=== PATIENT | female | born 1955 | race Caucasian/White ===

== ENCOUNTER 2016-11-18 08:02 | Emergency (ER) | payer OTHER ==
--- NOTE | 2016-11-18 09:51 | ERRECORD ---
[facility] EMERGENCY RECORD HPI SHOULDER (:17 WMEI) CHIEF COMPLAINT: Patient presents for evaluation of injury, to the right shoulder, Patient presents for evaluation of pain, to the right shoulder. HISTORIAN: History provided by patient, tripped 2 days ago fell on r shoulder pain since. MECHANISM OF INJURY: Known mechanism, Mechanism of injury fall, from standing, landing on right arm. QUALITY: Pain is dull in nature. TIME COURSE: Sudden onset of symptoms, 2, days ago. ASSOCIATED WITH: No associated distal injury, No associated elbow pain. EXACERBATED BY: Patient's condition exacerbated by extension, Patient's condition exacerbated by flexion, Patient's condition exacerbated by movement. RELIEVED BY: Patient's condition relieved by rest. ROS (09:18 WMEI) CONSTITUTIONAL: Negative constitutional review of systems, Historian denies fever, denies malaise. EYES: Historian denies eye pain, denies eye discharge. ENT: Historian denies rhinorrhea, denies sore throat. CARDIOVASCULAR: Historian denies chest pain, no radiation. RESPIRATORY: Historian denies cough, denies shortness of breath. GI: Historian denies abdominal pain, denies nausea. MUSCULOSKELETAL: Historian reports fall, reports injury, reports joint stiffness. see hpi. SKIN: Historian denies rash, denies skin changes, reports skin lesions. abrasions over crown of shoulder. NEUROLOGIC: Historian denies focal weakness, denies mental status changes. HEMO/LYMPHATIC: Historian denies easy bruising. PSYCHIATRIC: Historian denies anxiety, denies depression, denies emotional lability. PAST MEDICAL HISTORY (08:10 CTUR) MEDICAL HISTORY: Past medical history includes history of hyperlipidemia, Past medical history includes history of hypertension, Past medical history includes cardiac history, carotid plaque, Past medical history includes musculoskeletal disorder, chronic back pain, Past medical history includes history of diabetes. COMPRESSED FRACTURES OF THE VERTEBRA. verified 11/18/16. FEMALE SURGICAL HISTORY: left carotid sx, Surgical history of orthopedic surgery, right kvng, Notes: replacement, Surgical history of tubal ligation. right foot with all toes amputated; left foot with first and third toe amputated. verified 11/18/16. PSYCHIATRIC HISTORY: No previous psychiatric history,. verified 11/18/16. SOCIAL HISTORY: Patient denies alcohol use, Patient denies drug use, Patient has no smoking history, Patient drinks socially, &a-1R&a+25V*p+0X*y1902U*c202B*c15G*c2P*p-0X&a-25V&a+1R Name: Tanya Lou : 1955 F61 MedRec: [id number] AcctNum: [id number] Prepared: Noy Nov 18, 2016 13:21 by Interface Page 1 of 4 pMD [facility] EMERGENCY RECORD twice a month, Patient denies drug use, Patient has no smoking history, Lives at home,. verified 11/18/16. KNOWN ALLERGIES chicken derived (Unconfirmed): Reaction: Anaphylaxis diphenhydramine HCl (Unconfirmed): Reaction: Swollen Lips DUCKS (Unconfirmed): Reaction: Short of Breath honeydew (Unconfirmed): Reaction: Anaphylaxis kiwi (Unconfirmed): Reaction: Anaphylaxis LENTILS (Unconfirmed) No Known Drug Allergies piperacillin sodium (Unconfirmed): Reaction: ITCHING shellfish derived (Unconfirmed) STRAWBERRIES (Unconfirmed) tazobactam sodium (Unconfirmed) watermelon (Unconfirmed): Reaction: Anaphylaxis CURRENT MEDICATIONS (08:11 CTUR) metFORMIN: TABLET : Strength - 1,000 mg : ORAL Patient Dose: 1 tab(s) Oral 2 times a day. NovoLIN 70/30: VIAL (ML) : Strength - 100 unit/mL (70-30) : SUBCUTANEOUS Patient Dose: units Subcutaneous See Notes.60 UNITS IN AM; 40 UNITS IN PM. lisinopril: TABLET : Strength - 5 mg : ORAL Patient Dose: 1 tab(s) Oral once a day. atorvastatin: TABLET : Strength - 40 mg : ORAL Patient Dose: 1 tab(s) Oral once a day (at bedtime). Aspirin For Children: TABLET, CHEWABLE : Strength - 81 mg : ORAL Patient Dose: 1 tab(s) Oral once a day. VITAL SIGNS VITAL SIGNS: BP: 162/67, Pulse: 81, Resp: 18, Temp: 97.7 (Oral), Pain: 8, O2 sat: 99 on Room Air, Time: 11/18/2016 08:08. (08:08 CTUR) BP: 148/62, Pulse: 75, Resp: 18 (Non-Labored), Temp: 98.1 (Oral), O2 sat: 99 on Room Air, Time: 11/18/2016 09:28. (09:28 LGIB) PHYSICAL EXAM (09:21 WMEI) CONSTITUTIONAL: Vital Signs Reviewed, Patient afebrile, Patient alert and oriented to person, place and time. HEAD: Head exam included findings of head atraumatic, normocephalic. EYES: Conjunctiva normal, Sclera normal. ENT: Nose exam normal, Pharynx exam normal. NECK: Neck exam included findings of normal range of motion, Trachea midline, no cervical adenopathy. &a-1R&a+25V*p+0X*s7442R*c202B*c15G*c2P*p-0X&a-25V&a+1R Name: Tanya Lou : 1955 F61 MedRec: [id number] AcctNum: [id number] Prepared: Noy Nov 18, 2016 13:21 by Interface Page 2 of 4 pMD [facility] EMERGENCY RECORD RESPIRATORY CHEST: Breath sounds clear, Chest exam included findings of chest movement symmetrical. CARDIOVASCULAR: Cardiovascular exam included findings of heart rate regular rate and rhythm, Heart sounds normal. ABDOMEN FEMALE: Abdominal exam included findings of abdomen nontender, Spleen normal. BACK: Tenderness, paraspinal to the right upper back, no costovertebral angle tenderness. UPPER EXTREMITY: Left shoulder exam normal, Right shoulder exam included findings of, abrasions, tenderness, active range of motion abnormal, passive range of motion abnormal, capillary refill less than 2 seconds, distal motor intact, distal sensory intact. LOWER EXTREMITY: Range of motion normal, Motor strength normal. NEURO: Isa coma scale 15, Neuro exam findings include patient oriented to person, place and time, Speech normal, Gait normal. SKIN: Skin exam included findings of skin warm, dry, and normal in color, abrasions over r shoulder. LYMPHATIC: Lymphatic exam normal. PSYCHIATRIC: Psychiatric exam included findings of patient oriented to person place and time, Normal affect, Judgment normal, Insight normal. EKG INTERPRETATION (08:33 DHAM) 12 LEAD EKG INTERPRETATION: 12 lead EKG interpreted by Emergency Department Physician at time of study, 12 lead EKG shows normal sinus rhythm, Rate (beats per minute): 79, with no ectopics, No previous EKG available for comparison, Conduction normal, ST segments normal, T waves normal, Gila normal, Other findings include:, Q waves in V1, Q waves in V2, cannot rule out prior septal infarct. RADIOLOGYINTERPRETATION (09:24 WMEI) BRUSHER WARP: Preliminary review of x-rays by, ED Physician, no fx or dislocation. DOCTOR NOTES (09:00 WMEI) SIGN OUT: Patient signed out to, Dr. Hughes, Pending radiology studies include right shoulder. PROBLEM LIST No recorded problems DIAGNOSIS (09:25 WMEI) FINAL: PRIMARY: Shoulder sprain. PRESCRIPTION No recorded prescriptions DISPOSITION &a-1R&a+25V*p+0X*[id number]*c202B*c15G*c2P*p-0X&a-25V&a+1R Name: Tanya Lou : 1955 F61 MedRec: [id number] AcctNum: [id number] Prepared: Noy Nov 18, 2016 13:21 by Interface Page 3 of 4 pMD [facility] EMERGENCY RECORD PATIENT: Disposition Type: Discharge, Disposition: *Discharge Home. (09:25 WMEI) Patient left the department. (09:38 LGIB) Dailey: CTUR=FAB Arzola, Nayla MCGARRY=MD Sandy, Vikram LGIB=FAB Ferreira, Mindy WMEI=DO Hughes William &a-1R&a+25V*p+0X*a4005H*c202B*c15G*c2P*p-0X&a-25V&a+1R Name: Tanya Lou : 1955 F61 MedRec: [id number] AcctNum: [id number] Prepared: Noy Nov 18, 2016 13:21 by Interface Page 4 of 4 pMD MTDD
--- NOTE | 2016-11-18 09:53 | PICIS ---
[facility] EMERGENCY RECORD TRIAGE (08:07 CTUR) TRIAGE NOTES: Patient reports she had a fall on Saturday and has increased right shoulder pain since. (08:07 CTUR) PATIENT: NAME: Tanya Lou, AGE: 61, GENDER: female, : Sat1955, TIME OF GREET: Sun Nov 18, 2016 08:03, PREFERRED LANGUAGE: Romansh, ETHNICITY: Not or , ECODE BILLING MAP: [facility], SSN: [id number], Zip Code: [address], KG WEIGHT: 81.65 (est.), PHONE: , , , PERSON ID: [id number], PAYMENT: X Medicaid, PCP: MD Chambers Warren. (08:07 CTUR) COMPLAINT: Right Shoulder Pain. (08:07 CTUR) ADMISSION: URGENCY: 4 Non Urgent, ADMISSION SOURCE: Home, TRANSPORT: CAR, BED: TRIAGE. (08:07 CTUR) IMMUNIZATIONS: Flu vaccine not up to date, Tetanus not up to date, Pneumococcal vaccine not up to date. (08:10 CTUR) SIRS SCORING: Heart Rate 55-109 (0), Temp range 96.8-101.1 (0), respiratory rate 12-24 (0), Mental Status altered: no (0). (08:10 CTUR) TRIAGE SCREENING: Patient denies suicidal ideation, Patient denies presence of domestic violence. (08:10 CTUR) LMP: LMP: Menopause. (08:10 CTUR) PROVIDERS: TRIAGE NURSE: Nayla Arzola RN. (08:07 CTUR) VITAL SIGNS: BP 162/67, Pulse 81, Resp 18, Temp 97.7, (Oral), Pain 8, O2 Sat 99, on Room Air, Time 11/18/2016 08:08. (08:08 CTUR) PREVIOUS VISIT ALLERGIES: No Known Drug Allergies. (08:07 CTUR) No Known Drug Allergies. (08:10 CTUR) KNOWN ALLERGIES chicken derived (Unconfirmed): Reaction: Anaphylaxis diphenhydramine HCl (Unconfirmed): Reaction: Swollen Lips DUCKS (Unconfirmed): Reaction: Short of Breath honeydew (Unconfirmed): Reaction: Anaphylaxis kiwi (Unconfirmed): Reaction: Anaphylaxis LENTILS (Unconfirmed) No Known Drug Allergies piperacillin sodium (Unconfirmed): Reaction: ITCHING shellfish derived (Unconfirmed) STRAWBERRIES (Unconfirmed) tazobactam sodium (Unconfirmed) watermelon (Unconfirmed): Reaction: Anaphylaxis CURRENT MEDICATIONS (08:11 CTUR) metFORMIN: TABLET : Strength - 1,000 mg : ORAL Patient Dose: 1 tab(s) Oral 2 times a day. NovoLIN 70/30: VIAL (ML) : Strength - 100 unit/mL (70-30) : SUBCUTANEOUS Patient Dose: units Subcutaneous See Notes.60 UNITS IN AM; 40 UNITS IN PM. &a-1R&a+25V*p+0X*h0017A*c202B*c15G*c2P*p-0X&a-25V&a+1R Name: Tanya Lou : 1955 F61 MedRec: [id number] AcctNum: [id number] Prepared: Noy Nov 18, 2016 13:27 by Interface Page 1 of 6 pMD [facility] EMERGENCY RECORD lisinopril: TABLET : Strength - 5 mg : ORAL Patient Dose: 1 tab(s) Oral once a day. atorvastatin: TABLET : Strength - 40 mg : ORAL Patient Dose: 1 tab(s) Oral once a day (at bedtime). Aspirin For Children: TABLET, CHEWABLE : Strength - 81 mg : ORAL Patient Dose: 1 tab(s) Oral once a day. VITAL SIGNS VITAL SIGNS: BP: 162/67, Pulse: 81, Resp: 18, Temp: 97.7 (Oral), Pain: 8, O2 sat: 99 on Room Air, Time: 11/18/2016 08:08. (08:08 CTUR) BP: 148/62, Pulse: 75, Resp: 18 (Non-Labored), Temp: 98.1 (Oral), O2 sat: 99 on Room Air, Time: 11/18/2016 09:28. (09:28 LGIB) NURSING ASSESSMENT: EXTREMITY UPPER (08:11 CTUR) CONSTITUTIONAL: Complex assessment performed, Patient arrives ambulatory, Gait steady, History obtained from patient, Patient appears comfortable, Patient cooperative, Patient alert, Oriented to person, place and time, Skin warm, Skin dry, Skin normal in color, Mucous membranes pink, Mucous membranes moist, Patient complains of Right shoulder pain, Patient reports she tripped while walking on Saturday and fell onto her right shoulder, pt reports increase in pain with no relief from pain with medications. PAIN: aching pain, right shoulder, on a scale 0-10 patient rates pain as 8, Nothing has been tried to alleviate the pain. NONVERBAL PAIN: Non-Verbal pain assessment findings include: No non-verbal complaints while at rest (0), Non-Verbal complaints present with movement (1), Facial Grimaces not present at rest (0), Facial grimaces present with movement (1), Bracing not present at rest (0), Bracing not present with movement (0), Restlessness not present at rest (0), Restlessness not present with movement (0), Rubbing not present at rest (0), Rubbing not present with movement (0), Result: 2. LEFT UPPER EXTREMITY: Left upper extremity assessment findings include capillary refill less than 2 seconds, Skin color normal to hand, Skin temperature to hand warm, Distal sensation intact, Muscle tone normal, muscle strength 5, no edema present, radial pulse is +3, Inspection findings include no abrasions, Inspection findings include no swelling. RIGHT UPPER EXTREMITY: Right upper extremity assessment findings include capillary refill less than 2 seconds, Skin color normal to hand, Skin temperature to hand warm, Distal sensation intact, Muscle tone normal, muscle strength 1, no edema present, radial pulse is +3, Inspection findings include no abrasions, Inspection findings include no swelling, Notes: pt reports mild numb/tingling sensation to top of right shoudler. SAFETY: Side rails up, Cart/Stretcher in lowest position, Call &a-1R&a+25V*p+0X*w2223F*c202B*c15G*c2P*p-0X&a-25V&a+1R Name: Tanya Lou : 1955 F61 MedRec: [id number] AcctNum: [id number] Prepared: Noy Nov 18, 2016 13:27 by Interface Page 2 of 6 pMD [facility] EMERGENCY RECORD light within reach, Hospital ID band on. NURSING PROCEDURE: DISCHARGE NOTE (09:37 LGIB) DISCHARGE: Patient discharged to home, ambulating without assistance, driving self, unaccompanied, Summary of Care printed/ provided, Patient requested and was provided an electronic copy of Discharge Instructions, Discharge instructions given to patient, Simple or moderate discharge teaching performed, Above person(s) verbalized understanding of discharge instructions and follow-up care, Patient treated and evaluated by physician. BELONGINGS: Belongings and valuables with patient at time of discharge include:, Belongings remain with patient, Valuables remain with patient. NURSING PROCEDURE: EKG CHART (08:17 LGIB) EK lead EKG performed on the left chest, done by FAB Kim. FOLLOW-UP: After procedure, EKG for interpretation given to Dr. LUCAS. SAFETY: Side rails up, Cart/Stretcher in lowest position, Call light within reach, Hospital ID band on. NURSING PROCEDURE: NURSE NOTES (08:23 CTUR) NURSES NOTES: Notes: Upon helping patient into the hospital gown noted multiple lesions to bilateral breasts, pt reports she had chicken grease splash her breasts while cooking. All lesions are scabbed with no active bleeding. NURSING PROCEDURE: TRANSPORT TO TESTS PATIENT IDENTIFIER: Patient actively involved in identification process, Patient's identity verified by patient stating name, Patient's identity verified by patient stating date, Patient's identity verified by hospital ID bracelet. (08:28 CTUR) TRANSPORT TO TESTS: Transport indicated to facilitate diagnosis, Patient transported to x-ray, via wheelchair, Accompanied by x-ray residential pest control technician. (08:28 CTUR) FOLLOW-UP: After procedure, patient returned to emergency department. (08:48 LGIB) SAFETY: Side rails up, Cart/Stretcher in lowest position, Call light within reach, Hospital ID band on. (08:28 CTUR) ORDER DETAILS Order Name: EKG 12 Lead in Emergency Room, Status: Active, Time: 08:23 11/18/2016, User: CTUR, - Ordered for: MD Sandy, Vikram, - Entered by: FAB Arzola Christin - Sun Nov 18, 2016 08:23, - Quantity: 1, Order Name: Miscellaneous Nurse Order(s), Status: Done, Time: 09:28 11/18/2016, User: LGIB, - Ordered for: DO Hughes William, &a-1R&a+25V*p+0X*l8584D*c202B*c15G*c2P*p-0X&a-25V&a+1R Name: Tanya Lou : 1955 F61 MedRec: [id number] AcctNum: [id number] Prepared: Noy Nov 18, 2016 13:27 by Interface Page 3 of 6 pMD [facility] EMERGENCY RECORD - Entered by: DO Hughes William - Noy Nov 18, 2016 09:24, - Quantity: 1, Order Name: XR Shoulder Rt 3 View STANDARD, Status: Active, Time: 08:23 11/18/2016, User: ZEFERINO, - Ordered for: MD Lucas Darren, - Entered by: MD Lucas Darren - Noy Nov 18, 2016 08:23, - Quantity: 1. HPI SHOULDER (09:17 WMEI) CHIEF COMPLAINT: Patient presents for evaluation of injury, to the right shoulder, Patient presents for evaluation of pain, to the right shoulder. HISTORIAN: History provided by patient, tripped 2 days ago fell on r shoulder pain since. MECHANISM OF INJURY: Known mechanism, Mechanism of injury fall, from standing, landing on right arm. QUALITY: Pain is dull in nature. TIME COURSE: Sudden onset of symptoms, 2, days ago. ASSOCIATED WITH: No associated distal injury, No associated elbow pain. EXACERBATED BY: Patient's condition exacerbated by extension, Patient's condition exacerbated by flexion, Patient's condition exacerbated by movement. RELIEVED BY: Patient's condition relieved by rest. ROS (09:18 WMEI) CONSTITUTIONAL: Negative constitutional review of systems, Historian denies fever, denies malaise. EYES: Historian denies eye pain, denies eye discharge. ENT: Historian denies rhinorrhea, denies sore throat. CARDIOVASCULAR: Historian denies chest pain, no radiation. RESPIRATORY: Historian denies cough, denies shortness of breath. GI: Historian denies abdominal pain, denies nausea. MUSCULOSKELETAL: Historian reports fall, reports injury, reports joint stiffness. see hpi. SKIN: Historian denies rash, denies skin changes, reports skin lesions. abrasions over crown of shoulder. NEUROLOGIC: Historian denies focal weakness, denies mental status changes. HEMO/LYMPHATIC: Historian denies easy bruising. PSYCHIATRIC: Historian denies anxiety, denies depression, denies emotional lability. PAST MEDICAL HISTORY (08:10 CTUR) MEDICAL HISTORY: Past medical history includes history of hyperlipidemia, Past medical history includes history of hypertension, Past medical history includes cardiac history, carotid plaque, Past medical history includes musculoskeletal disorder, chronic back pain, Past medical history includes history of diabetes. COMPRESSED FRACTURES OF THE VERTEBRA. verified 11/18/16. &a-1R&a+25V*p+0X*g5293S*c202B*c15G*c2P*p-0X&a-25V&a+1R Name: Tanya Lou : 1955 F61 MedRec: [id number] AcctNum: [id number] Prepared: Noy Nov 18, 2016 13:27 by Interface Page 4 of 6 pMD [facility] EMERGENCY RECORD FEMALE SURGICAL HISTORY: left carotid sx, Surgical history of orthopedic surgery, right kvng, Notes: replacement, Surgical history of tubal ligation. right foot with all toes amputated; left foot with first and third toe amputated. verified 11/18/16. PSYCHIATRIC HISTORY: No previous psychiatric history,. verified 11/18/16. SOCIAL HISTORY: Patient denies alcohol use, Patient denies drug use, Patient has no smoking history, Patient drinks socially, twice a month, Patient denies drug use, Patient has no smoking history, Lives at home,. verified 11/18/16. PHYSICAL EXAM (09:21 WMEI) CONSTITUTIONAL: Vital Signs Reviewed, Patient afebrile, Patient alert and oriented to person, place and time. HEAD: Head exam included findings of head atraumatic, normocephalic. EYES: Conjunctiva normal, Sclera normal. ENT: Nose exam normal, Pharynx exam normal. NECK: Neck exam included findings of normal range of motion, Trachea midline, no cervical adenopathy. RESPIRATORY CHEST: Breath sounds clear, Chest exam included findings of chest movement symmetrical. CARDIOVASCULAR: Cardiovascular exam included findings of heart rate regular rate and rhythm, Heart sounds normal. ABDOMEN FEMALE: Abdominal exam included findings of abdomen nontender, Spleen normal. BACK: Tenderness, paraspinal to the right upper back, no costovertebral angle tenderness. UPPER EXTREMITY: Left shoulder exam normal, Right shoulder exam included findings of, abrasions, tenderness, active range of motion abnormal, passive range of motion abnormal, capillary refill less than 2 seconds, distal motor intact, distal sensory intact. LOWER EXTREMITY: Range of motion normal, Motor strength normal. NEURO: Isa coma scale 15, Neuro exam findings include patient oriented to person, place and time, Speech normal, Gait normal. SKIN: Skin exam included findings of skin warm, dry, and normal in color, abrasions over r shoulder. LYMPHATIC: Lymphatic exam normal. PSYCHIATRIC: Psychiatric exam included findings of patient oriented to person place and time, Normal affect, Judgment normal, Insight normal. EVENTS TRANSFER: Triage to Emergency Triage. (Noy Nov 18, 2016 08:07 CTUR) Emergency Triage to Emergency Room -04. (08:07 CTUR) Removed from Emergency Emergency Room -04. (09:38 LGIB) RADIOLOGYINTERPRETATION (09:24 WMEI) &a-1R&a+25V*p+0X*g2230E*c202B*c15G*c2P*p-0X&a-25V&a+1R Name: Tanya Lou : 1955 F61 MedRec: [id number] AcctNum: [id number] Prepared: Noy Nov 18, 2016 13:27 by Interface Page 5 of 6 D [facility] EMERGENCY RECORD RN ALLERGY: Preliminary review of x-rays by, ED Physician, no fx or dislocation. EKG INTERPRETATION (08:33 DHAM) 12 LEAD EKG INTERPRETATION: 12 lead EKG interpreted by Emergency Department Physician at time of study, 12 lead EKG shows normal sinus rhythm, Rate (beats per minute): 79, with no ectopics, No previous EKG available for comparison, Conduction normal, ST segments normal, T waves normal, Slater normal, Other findings include:, Q waves in V1, Q waves in V2, cannot rule out prior septal infarct. DOCTOR NOTES (09:00 WMEI) SIGN OUT: Patient signed out to, Dr. Hughes, Pending radiology studies include right shoulder. PROBLEM LIST No recorded problems DIAGNOSIS (09:25 WMEI) FINAL: PRIMARY: Shoulder sprain. DISPOSITION PATIENT: Disposition Type: Discharge, Disposition: *Discharge Home. (09:25 WMEI) Patient left the department. (09:38 LGIB) INSTRUCTION (09:26 WMEI) DISCHARGE: SHOULDER SPRAIN, SLING. FOLLOWUP: [facility], [facility], [address] [place] [address] [address], [place] [address], . SPECIAL: Follow-up with your primary physician as needed. PRESCRIPTION No recorded prescriptions IMAGING *EKG: Image captured from scanner. (09:19 LGIB) *SUPPLY CHARGE SHEET: Image captured from scanner. (09:41 CTUR) *DISCHARGE INSTRUCTIONS RECEIPT: Image captured from scanner. (09:42 CTUR) ADMIN (13:18 WMEI) DIGITAL SIGNATURE: DO Hughes William. Dailey: CTUR=FAB Arzola, Nayla DHAM=MD Lucas Darren LGIB=FAB Ferreira, Mindy WMEI=DO Hughes William &a-1R&a+25V*p+0X*x3037H*c202B*c15G*c2P*p-0X&a-25V&a+1R Name: Carmine Tanya Demetrio : 1955 F61 MedRec: [id number] AcctNum: [id number] Prepared: Noy Nov 18, 2016 13:27 by Interface Page 6 of 6 pMD MTDD
--- NOTE | 2016-11-18 16:15 | RAD ---
RIGHT SHOULDER FOUR VIEWS: Date: 11-18-16 FINDINGS: No fracture or dislocation was seen. All surrounding bones appeared intact. The AC joint was not w idened. Some ossification at the site of the coracoclavicular ligament suggests old trauma here. A little bony spurring is seen in the AC joint. IMPRESSION: Evidence of old trauma but no acute finding. POS: HOME
== END 2016-11-18 09:37 | disposition home or self-care (01) ==
LOC: BURERS 08:02
DX: S43.401A Unspecified sprain of right shoulder joint, initial encounter (principal); E78.5 Hyperlipidemia, unspecified; I10 Essential (primary) hypertension; E11.9 Type 2 diabetes mellitus without complications; Z98.51 Tubal ligation status; Z79.4 Long term (current) use of insulin; Z79.82 Long term (current) use of aspirin; Z79.899 Other long term (current) drug therapy; W01.0XXA Fall on same level from slipping, tripping and stumbling without subsequent striking against object, initial encounter
CPT/HCPCS: 93005

== ENCOUNTER 2017-03-08 11:07 | Outpatient (CLI) | payer OTHER ==
[2017-03-08 12:39] LABS: ALT (SGPT) 10 U/L (0-55); AST (SGOT) 14 U/L (5-34); Albumin 3.7 g/dL (3.5-5.0); Alkaline Phosphatase 95 U/L (40-150); Anion Gap 12 mmol/L (10-20); BUN (Urea Nitrogen) 10 mg/dL (9.8-20.1); Bilirubin, Total 0.2 mg/dL (0.2-1.2); Calc. Creatinine Clearance 0 mL/min (70-130); Calcium 9.2 mg/dL (7.8-10.44); Carbon Dioxide 28 mmol/L (22-29); Cardiac Risk 3.6 (Less than 4.5); Chloride 104 mmol/L (98-107); Cholesterol 150 mg/dL (< 200 Desired); Estimated GFR-MDRD 73; Globulin 4.9 g/dL (2.4-3.5); Glucose 231 mg/dL (70-105); HDL Cholesterol 42 mg/dL (>60 Neg Risk); LDL Cholesterol, Calculated 73 mg/dL; Potassium 4.2 mmol/L (3.5-5.1); Protein, Total 8.6 g/dL (6.0-8.3); Sodium 140 mmol/L (136-145); Triglycerides 177 mg/dL (Less than 150)
[2017-03-08 17:24] LABS: Hep C IgG Ab Non-Reactive (NonReactive); Hep C Index 0.26 S/CO (0-0.79)
== END 2017-03-08 11:08 | disposition home or self-care (01) ==
LOC: BURLAB 11:07
PROVIDERS: ATTEND Family Medicine
DX: E78.2 Mixed hyperlipidemia (principal); E11.40 Type 2 diabetes mellitus with diabetic neuropathy, unspecified; I10 Essential (primary) hypertension; Z79.899 Other long term (current) drug therapy
CPT/HCPCS: 36415; 80053; 80061; 86803

== ENCOUNTER 2018-02-12 09:36 | Emergency (ER) | payer OTHER ==
[2018-02-12] MEDS ORDERED: Adacel (T-DAP) 0.5 ML VIAL ONE (10:07)
[2018-02-12] MEDS ORDERED: Bacitracin Zinc 1 Packet ONE (10:35)
--- NOTE | 2018-02-12 20:40 | RAD ---
LEFT FOOT THREE VIEWS: 02/12/18 Comparison is made with a 07/23/15 study. There has been a prior amputation of the great toe and most of the first metatarsal. The second metat arsal and second toe have chronic changes in them with deviation of the second toe laterally. The ov erall appearance has only changed slightly in the interval. There is less bone at the end of the thir d metatarsal today when before. My presumption is that there may have been more surgery in the meanti me. I do not see any opaque foreign bodies. There may be a laceration or ulcer over the junction betw een the distal second metatarsal and the second toe. The underlying bone at that point does not appea r much different than before. Degenerative changes are seen in the intertarsal joints and a calcaneal spur is noted. IMPRESSION: Severe chronic changes but no acute bony findings or opaque foreign bodies were appreciated. POS: HOME
== END 2018-02-12 10:45 | disposition home or self-care (01) ==
LOC: BURERS 09:36
DX: S91.115A Laceration without foreign body of left lesser toe(s) without damage to nail, initial encounter (principal); E78.5 Hyperlipidemia, unspecified; I10 Essential (primary) hypertension; E11.9 Type 2 diabetes mellitus without complications; Z79.4 Long term (current) use of insulin; W22.8XXA Striking against or struck by other objects, initial encounter
CPT/HCPCS: 12002; 90471; 90715; J2001